=== PATIENT | female | born 1950 | race Caucasian/White ===

== ENCOUNTER → 2018-04-30 | Outpatient (CLI) | payer MEDICARE, BC ==
[~2018-04-30] MED LIST: ANTIVERT25 MG PO; ASPIRIN325 PO; CEFTIN 250 MG250 MG PO; CIPRO500 MG PO; COLACE100 MG PO; COUMADIN 2 MG TA2 M1 PO; COUMADIN 4 MG TA4 M1 PO; EFFEXOR; EFFEXOR 5050 MG/1 T1 PO; EFFEXOR XR150 MG PO; ELIQUIS5 MG PO; HYDROCODON-ACE1 EA11; HYDROCODONE-AP1 EAC6 PO; LEVOTHYROXIN0.175 MG PO; LEVOTHYROXINE 0.15MG PO; LEVOXYL125 MCG; NEURONTIN300 MG PO; NORCO 5-325 TA1 EACH PO; NYAMYC15 GM TOP; OXYCODONE HCL 55 MG PO; PREDNISONE; PREDNISONE 10 M10 MG PO; PROPAFENONE 22225 M1 PO; SYNTHROID150 MCG PO; TOPROL XL25 MG PO; TYLENOL325 MG PO; XANAX 0.5 MG0.5 MG PO; XARELTO10 MG PO
--- NOTE | 2018-04-30 16:20 | 2DMMODE ---
[place] [address] 2 D/M-MODE ECHOCARDIOGRAM Name: CHELO RAMOS Room: [facility]#: [id number] Admission: 04/30/18 Attend Phys: Fernandez Haro, Discharge: Date of : 52 Date of Service: 04/30/18 1620 Report #: [id number] THIS REPORT FOR: //name// APPROVED REPORT Study performed: 04/30/2018 15:00:45 EXAM: Comprehensive 2D, Doppler, and color-flow Echocardiogram Patient Location: Out-Patient Status: routine BSA: 2.27 HR: 62 bpm BP: 116/78 mmHg Other Information Study Quality: Good Indications Congestive Heart Failure Atrial Fibrillation 2D Dimensions IVSd: 15.51 (7-11mm) LVOT Diam: 20.73 (18-24mm) LVDd: 55.63 mm PWd: 11.33 (7-11mm) Ascending Ao: 33.84 (22-36mm) LVDs: 34.03 (25-40mm) Aortic Root: 31.76 mm Volumes Left Atrial Volume (Systole) LA ESV Index: 20.60 mL/m2 Aortic Valve AoV Peak Neptali.: 1.78 m/s AO Peak Gr.: 12.74 mmHg LVOT Max P.52 mmHg AO Mean Gr.: 7.43 mmHg LVOT Mean P.69 mmHg LVOT Max V: 0.94 m/s AO V2 VTI: 40.92 cm LVOT Mean V: 0.59 m/s MAYRA (VTI): 1.86 cm2 LVOT V1 VTI: 22.56 cm Mitral Valve E/A Ratio: 2.26 MV Decel. Time: 209.27 ms MV E Max Neptali.: 0.88 m/[place] [address] 2 D/M-MODE ECHOCARDIOGRAM Name: CHELO RAMOS Room: [facility]#: [id number] Admission: 04/30/18 Attend Phys: Fernandez Haro, Discharge: Date of : 52 Date of Service: 04/30/18 1620 Report #: [id number] MV PHT: 60.69 ms MVA (PHT): 3.63 cm2 TDI E/Lateral E': 8.00 E/Medial E': 9.78 Medial E' Neptali.: 0.09 m/s Lateral E' Neptali.: 0.11 m/s Pulmonary Valve PV Peak Neptali.: 1.03 m/s PV Peak Gr.: 4.22 mmHg Tricuspid Valve RAP Estimate: 5.00 mmHg TR Peak Gr.: 15.39 mmHg RVSP: 20.39 mmHg PA Pressure: 20.39 mmHg Left Ventricle The left ventricle is normal size. There is normal LV segmental wall motion. Mild concentric left ventricular hypertrophy. Left ventricular systolic function is normal. LVEF is 55-60%. The left ventricular diastolic function is normal. Right Ventricle The right ventricle is normal size. The right ventricular systolic function is normal. Atria Left atrium is mildly dilated. The right atrium size is normal. Aortic Valve Aortic valve is mildly calcified. Mild aortic regurgitation. Mild aortic stenosis. Mitral Valve The mitral valve is normal in structure. Mild mitral regurgitation. No evidence of mitral valve stenosis. Tricuspid Valve The tricuspid valve is normal in structure. Mild tricuspid regurgitation. The RVSP is 25 mmHg. Pulmonic Valve The pulmonary valve is normal in structure. Mild [place] [address] 2 D/M-MODE ECHOCARDIOGRAM Name: CHELO RAMOS Room: [facility]#: [id number] Admission: 04/30/18 Attend Phys: Fernandez Haro, Discharge: Date of : 52 Date of Service: 04/30/18 1620 Report #: [id number] Great Vessels The aortic root is normal in size. IVC is normal in size and collapses >50% with inspiration. Pericardium There is no pericardial effusion. <Conclusion> The left ventricle is normal size. Mild concentric left ventricular hypertrophy. Left ventricular systolic function is normal. LVEF is 55-60%. The left ventricular diastolic function is normal. Left atrium is mildly dilated. Aortic valve is mildly calcified. Mild aortic regurgitation. Mild aortic stenosis. Mild mitral regurgitation. Mild tricuspid regurgitation. The RVSP is 25 mmHg. Mild pulmonic regurgitation. IVC is normal in size and collapses >50% with inspiration. <ELECTRONICALLY SIGNED> By: Angel Booth MD, FACC 04/30/18 1620 19 162 Angel Booth MD, FACC /INF
== END ==
LOC: M.CRD 14:43
DX: I08.3 Combined rheumatic disorders of mitral, aortic and tricuspid valves (principal); I48.0 Paroxysmal atrial fibrillation; I50.9 Heart failure, unspecified

== ENCOUNTER 2019-06-01 12:12 | Emergency (ER) | payer MEDICARE, BC ==
[~2019-06-01] VITALS: Ht 165.1 cm; Wt 122.5 kg
[2019-06-01 12:56] LABS: ABSOLUTE LYMPHOCYTES 2.2 thou/uL (0.8-5.3); ABSOLUTE MONOCYTES 1.1 thou/uL (0.0-1.2); ABSOLUTE NEUTROPHILS 5.6 thou/uL (1.6-8.1); BASOPHILS 0.4 %; EOSINOPHILS 0.1 %; HEMATOCRIT 41.1 % (37.0-47.0); LYMPHOCYTES 25.2 %; MCH 32.1 pg (26.0-34.0); MCHC 33.9 g/dL (28.0-37.0); MCV 94.5 fL (80.0-100.0); MONOCYTES 11.8 %; MPV 7.6 fl. (7.2-11.1); NUCLEATED RBCS 0 /100WBC; PLATELET COUNT* 278 thou/uL (150-400); POLYS 62.5 %; RBC 4.35 mil/uL (4.20-5.00); RDW-CV 14.5 % (10.5-14.5); WBC 8.9 thou/uL (4.0-11.0)
[2019-06-01 13:04] LABS: INR 4.4; PROTIME 42.4 Seconds (9.20-11.50)
[2019-06-01 13:05] LABS: CALCIUM 8.3 mg/dL (8.5-10.1); CREATININE 1.1 mg/dL (0.6-1.3); POTASSIUM 3.6 mmol/L (3.5-5.1)
[2019-06-01 13:09] LABS: ALBUMIN 3.3 g/dL (3.4-5.0); TOTAL BILIRUBIN 0.2 mg/dL (<0.1-1.0); TOTAL PROTEIN 6.9 g/dL (6.4-8.2)
[2019-06-01 13:10] LABS: URINE BILIRUBIN 1+ (Negative); URINE BLOOD TRACE (Negative); URINE CLARITY CLEAR; URINE COLOR YELLOW; URINE GLUCOSE-RANDOM NEGATIVE (Negative); URINE KETONES TRACE (Negative); URINE LEUKOCYTES-REFLEX 1+ (Negative); URINE NITRITE-REFLEX NEGATIVE (Negative); URINE PROTEIN NEGATIVE (Negative); URINE SPECIFIC GRAVITY >= 1.030 (1.005-1.030); URINE UROBILINOGEN 0.2 E.U./dl (0.2-1.0)
[2019-06-01 13:11] LABS: ICTOTEST (BILI CONFIRMATORY) Negative (Negative); INFLUENZA A ANTIGEN Negative (Negative); INFLUENZA B ANTIGEN Negative (Negative)
[2019-06-01 13:13] LABS: BACTERIA-REFLEX 1-9 Few /HPF (None Seen); CALCIUM OXALATE 4-10 Moderate /LPF (None Seen); HYALINE CASTS 0-3 Few /LPF (None Seen); SQUAMOUS 4-10 Moderate /LPF (0-3); URINE RBC 0-2 Rare /HPF (0-2); URINE WBC-REFLEX 0-5 Rare /HPF (0-5)
[2019-06-01] MEDS ORDERED: CIPROFLOXACIN500 M1 PO (14:39)
[2019-06-01] MEDS ORDERED: FLOMAX0.4 MG PO (14:39)
[2019-06-01] MEDS ORDERED: NORCO 5-325 TA1 EAC1 PO (14:39)
[2019-06-01 14:50] VITALS: BP 137/92
== END 2019-06-01 14:54 | disposition home or self-care (01) ==
LOC: M.ERS 12:12
PROVIDERS: Family Medicine; Nurse Practitioner Family
DX: N20.0 Calculus of kidney (principal); M06.9 Rheumatoid arthritis, unspecified; I48.91 Unspecified atrial fibrillation; E03.9 Hypothyroidism, unspecified; Z90.49 Acquired absence of other specified parts of digestive tract; Z88.8 Allergy status to other drugs, medicaments and biological substances; Z91.041 Radiographic dye allergy status

== ENCOUNTER 2019-08-29 15:21 | Emergency (ER) | payer MEDICARE, BC ==
[~2019-08-29] VITALS: Ht 167.6 cm; Wt 125.2 kg
[~2019-08-29 15:21] MED LIST changes: +CIPROFLOXACIN500 M1 PO; +FLOMAX0.4 MG PO; +NORCO 5-325 TA1 EAC1 PO
[2019-08-29 15:52] LABS: ABSOLUTE BASOPHILS 0.1 thou/uL (0.0-0.2); ABSOLUTE LYMPHOCYTES 2.2 thou/uL (0.8-5.3); ABSOLUTE MONOCYTES 0.9 thou/uL (0.0-1.2); ABSOLUTE NEUTROPHILS 7.2 thou/uL (1.6-8.1); BASOPHILS 0.5 %; HEMATOCRIT 42.5 % (37.0-47.0); HEMOGLOBIN 14.3 gm/dL (12.0-15.0); LYMPHOCYTES 21.3 %; MCH 32.1 pg (26.0-34.0); MCHC 33.6 g/dL (28.0-37.0); MCV 95.3 fL (80.0-100.0); MONOCYTES 8.7 %; MPV 7.9 fl. (7.2-11.1); NUCLEATED RBCS 0 /100WBC; PLATELET COUNT* 299 thou/uL (150-400); POLYS 69.5 %; RBC 4.45 mil/uL (4.20-5.00); RDW-CV 14.8 % (10.5-14.5); WBC 10.4 thou/uL (4.0-11.0)
[2019-08-29 15:53] LABS: URINE BILIRUBIN NEGATIVE (Negative); URINE BLOOD TRACE (Negative); URINE CLARITY CLEAR; URINE COLOR YELLOW; URINE GLUCOSE-RANDOM NEGATIVE (Negative); URINE KETONES NEGATIVE (Negative); URINE LEUKOCYTES-REFLEX 1+ (Negative); URINE NITRITE-REFLEX NEGATIVE (Negative); URINE PROTEIN NEGATIVE (Negative); URINE SPECIFIC GRAVITY >= 1.030 (1.005-1.030); URINE UROBILINOGEN 0.2 E.U./dl (0.2-1.0)
[2019-08-29 16:01] LABS: CALCIUM 8.6 mg/dL (8.5-10.1); CREATININE 1.1 mg/dL (0.6-1.3); POTASSIUM 4.2 mmol/L (3.5-5.1)
[2019-08-29 16:02] LABS: SQUAMOUS >10 Many /LPF (0-3)
[2019-08-29 16:03] LABS: BACTERIA-REFLEX >30 Many /HPF (None Seen); CASTS None Seen /LPF (None Seen); CRYSTALS None Seen /LPF (None Seen); MUCUS 0-3 Light strn/LPF (None Seen); URINE RBC 0-2 Rare /HPF (0-2); URINE WBC-REFLEX 6-15 Few /HPF (0-5)
[2019-08-29 16:05] LABS: ALBUMIN 3.7 g/dL (3.4-5.0); TOTAL BILIRUBIN 0.3 mg/dL (<0.1-1.0); TOTAL PROTEIN 7.6 g/dL (6.4-8.2)
[2019-08-29] MEDS ORDERED: BACTRIM DS TAB1 EACH PO (17:18)
[2019-08-29 17:48] VITALS: BP 124/75
== END 2019-08-29 17:49 | disposition home or self-care (01) ==
LOC: M.ERS 15:21
PROVIDERS: Physician Assistant
DX: N39.0 Urinary tract infection, site not specified (principal); K42.9 Umbilical hernia without obstruction or gangrene; I48.91 Unspecified atrial fibrillation; E03.9 Hypothyroidism, unspecified; E66.9 Obesity, unspecified; M06.9 Rheumatoid arthritis, unspecified; Z68.41 Body mass index [BMI] 40.0-44.9, adult; Z90.49 Acquired absence of other specified parts of digestive tract; Z98.51 Tubal ligation status; Z87.442 Personal history of urinary calculi; Z91.041 Radiographic dye allergy status; Z91.048 Other nonmedicinal substance allergy status; Z88.8 Allergy status to other drugs, medicaments and biological substances

== ENCOUNTER → 2019-10-09 | Outpatient (CLI) | payer MEDICARE, BC ==
[~2019-10-09] MED LIST changes: +BACTRIM DS TAB1 EACH PO
== END ==
LOC: M.LAB 10-08 17:17
PROVIDERS: ATTEND Surgery
DX: Z01.818 Encounter for other preprocedural examination (principal); K42.9 Umbilical hernia without obstruction or gangrene; Z11.59 Encounter for screening for other viral diseases

== ENCOUNTER → 2019-10-13 | Outpatient (CLI) | payer MEDICARE, BC ==
[2019-10-13 06:55] LABS: INR 1.1
== END ==
LOC: M.LAB 04:51
PROVIDERS: Anesthesiology
DX: R79.1 Abnormal coagulation profile (principal)

== ENCOUNTER → 2019-11-10 | Outpatient (CLI) | payer MEDICARE, BC ==
--- NOTE | 2019-11-10 14:46 | 2DMMODE ---
[place] [address] 2 D/M-MODE ECHOCARDIOGRAM Name: FARHANAFABRIZIOCHELO SURYA Room: [facility].#: [id number] Admission: 11/10/19 Attend Phys: Mary Turner Discharge: Date of : 52 Date of Service: 11/10/19 1445 Report #: [id number] THIS REPORT FOR: cc: Kylah Chang MD, Ghazal A. MD Blick,Jacobo Melgoza MD [facility] ~ APPROVED REPORT Study performed: 11/10/2019 12:50:02 EXAM: Comprehensive 2D, Doppler, and color-flow Echocardiogram Patient Location: Out-Patient BSA: 2.23 HR: 65 bpm BP: 120/80 mmHg Other Information Study Quality: Good Indications Atrial Fibrillation 2D Dimensions IVSd: 11.38 (7-11mm) LVOT Diam: 20.17 (18-24mm) LVDd: 57.91 mm PWd: 8.23 (7-11mm) Ascending Ao: 32.53 (22-36mm) LVDs: 36.08 (25-40mm) Aortic Root: 32.89 mm Volumes Left Atrial Volume (Systole) LA ESV Index: 18.80 mL/m2 Aortic Valve AoV Peak Neptali.: 1.67 m/s AO Peak Gr.: 11.09 mmHg LVOT Max P.15 mmHg AO Mean Gr.: 6.70 mmHg LVOT Mean P.92 mmHg LVOT Max V: 1.02 m/s AO V2 VTI: 38.40 cm LVOT Mean V: 0.63 m/s MAYRA (VTI): 1.95 cm2 LVOT V1 VTI: 23.37 cm Mitral Valve E/A Ratio: 2.09 [place] [address] 2 D/M-MODE ECHOCARDIOGRAM Name: CHELO RAMOS Room: [facility]#: [id number] Admission: 11/10/19 Attend Phys: Mary Turner Discharge: Date of : 52 Date of Service: 11/10/19 1445 Report #: [id number] MV Decel. Time: 178.19 ms MV E Max Neptali.: 0.85 m/s MV PHT: 51.67 ms MVA (PHT): 4.26 cm2 TDI E/Lateral E': 8.50 E/Medial E': 8.50 Medial E' Neptali.: 0.10 m/s Lateral E' Neptali.: 0.10 m/s Pulmonary Valve PV Peak Neptali.: 0.98 m/s PV Peak Gr.: 3.87 mmHg Tricuspid Valve RAP Estimate: 5.00 mmHg TR Peak Gr.: 25.60 mmHg RVSP: 30.60 mmHg PA Pressure: 30.60 mmHg Left Ventricle The left ventricle is normal size. There is normal LV segmental wall motion. There is normal left ventricular wall thickness. Left ventricular systolic function is borderline. LVEF is 50-55%. The left ventricular diastolic function is normal. Right Ventricle The right ventricle is normal size. The right ventricular systolic function is normal. Atria The left atrium size is normal. The right atrium size is normal. Aortic Valve Mild aortic valve sclerosis. Mild aortic regurgitation. There is no aortic valvular stenosis. Mitral Valve Mild mitral annular calcification. Mild mitral regurgitation. No evidence of mitral valve stenosis. Tricuspid Valve The tricuspid valve is normal in structure. Mild tricuspid regurgitation. Pulmonic Valve The pulmonary valve is normal in structure. [place] [address] 2 D/M-MODE ECHOCARDIOGRAM Name: CHELO RAMOS SURYA Room: [facility]#: [id number] Admission: 11/10/19 Attend Phys: Mary Turner Discharge: Date of : 52 Date of Service: 11/10/19 1445 Report #: [id number] regurgitation. Great Vessels The aortic root is normal in size. IVC is normal in size and collapses >50% with inspiration. Pericardium There is no pericardial effusion. <Conclusion> LVEF is 50-55%. Mild aortic valve sclerosis. <ELECTRONICALLY SIGNED> By: Jacobo Srivastava MD, [facility] 11/10/19 1445 1445 1445 Jacobo Srivastava MD, [facility] /INF
== END ==
LOC: M.CRD 12:57
PROVIDERS: ATTEND Internal Medicine
DX: I08.8 Other rheumatic multiple valve diseases (principal); I48.0 Paroxysmal atrial fibrillation

== ENCOUNTER 2020-08-23 14:02 | Inpatient (IN) | payer MEDICARE, BC ==
[~2020-08-23] VITALS: Ht 165.1 cm; Wt 120.7 kg
[2020-08-23 14:10] VITALS: BP 151/76
[2020-08-23 15:14] LABS: URINE BLOOD 1+ (Negative); URINE CLARITY SL CLOUDY; URINE COLOR YELLOW; URINE GLUCOSE-RANDOM NEGATIVE (Negative); URINE KETONES TRACE (Negative); URINE LEUKOCYTES-REFLEX 1+ (Negative); URINE NITRITE-REFLEX NEGATIVE (Negative); URINE PROTEIN TRACE (Negative); URINE SPECIFIC GRAVITY >= 1.030 (1.005-1.030)
[2020-08-23 15:15] LABS: ABSOLUTE BASOPHILS 0.1 thou/uL (0.0-0.2); ABSOLUTE LYMPHOCYTES 1.9 thou/uL (0.8-5.3); ABSOLUTE MONOCYTES 1.1 thou/uL (0.0-1.2); ABSOLUTE NEUTROPHILS 6.4 thou/uL (1.6-8.1); BASOPHILS 0.6 %; EOSINOPHILS 0.1 %; HEMATOCRIT 43.2 % (37.0-47.0); HEMOGLOBIN 14.3 gm/dL (12.0-15.0); LYMPHOCYTES 20.2 %; MCH 31.6 pg (26.0-34.0); MCV 95.7 fL (80.0-100.0); MONOCYTES 11.4 %; MPV 8.4 fl. (7.2-11.1); NUCLEATED RBCS 0 /100WBC; PLATELET COUNT* 285 thou/uL (150-400); POLYS 67.7 %; RBC 4.52 mil/uL (4.20-5.00); RDW-CV 14.6 % (10.5-14.5); WBC 9.4 thou/uL (4.0-11.0)
[2020-08-23 15:17] LABS: ICTOTEST (BILI CONFIRMATORY) Negative (Negative); URINE BILIRUBIN 2+ (Negative)
[2020-08-23 15:21] LABS: CRYSTALS None Seen /LPF (None Seen); HYALINE CASTS 4-10 Moderate /LPF (None Seen); MUCUS 0-3 Light strn/LPF (None Seen); SQUAMOUS 0-3 Few /LPF (0-3); URINE RBC 0-2 Rare /HPF (0-2); URINE WBC-REFLEX 0-5 Rare /HPF (0-5)
[2020-08-23 15:22] LABS: CALCIUM 9.2 mg/dL (8.5-10.1); CREATININE 1.1 mg/dL (0.6-1.3); POTASSIUM 4.1 mmol/L (3.5-5.1)
[2020-08-23 15:27] LABS: ALBUMIN 3.1 g/dL (3.4-5.0); TOTAL BILIRUBIN 0.4 mg/dL (<0.1-1.0); TOTAL PROTEIN 7.3 g/dL (6.4-8.2)
[2020-08-23 15:33] LABS: INR 4.3; PROTIME 42.1 Seconds (9.20-11.50)
[2020-08-23 18:40] VITALS: BP 151/82
[2020-08-23 19:23] VITALS: BP 115/86
[2020-08-24 05:50] LABS: HEMATOCRIT 39.9 % (37.0-47.0); HEMOGLOBIN 12.9 gm/dL (12.0-15.0); MCH 31.1 pg (26.0-34.0); MCHC 32.4 g/dL (28.0-37.0); MCV 96.1 fL (80.0-100.0); MPV 8.7 fl. (7.2-11.1); RBC 4.15 mil/uL (4.20-5.00); RDW-CV 14.5 % (10.5-14.5); WBC 7.8 thou/uL (4.0-11.0)
[2020-08-24 05:54] LABS: CALCIUM 8.4 mg/dL (8.5-10.1); CREATININE 0.9 mg/dL (0.6-1.3); MAGNESIUM 1.8 mg/dL (1.8-2.4)
[2020-08-24 08:00] VITALS: BP 90/71; BP 98/71
[2020-08-24 09:04] LABS: INR 4.3; PROTIME 42.2 Seconds (9.20-11.50)
[2020-08-24 15:38] VITALS: BP 102/66
[2020-08-24 19:45] VITALS: BP 119/61
[2020-08-25 04:34] LABS: HEMATOCRIT 38.3 % (37.0-47.0); HEMOGLOBIN 12.5 gm/dL (12.0-15.0); MCH 31.2 pg (26.0-34.0); MCHC 32.7 g/dL (28.0-37.0); MCV 95.7 fL (80.0-100.0); MPV 7.9 fl. (7.2-11.1); RBC 4.01 mil/uL (4.20-5.00); RDW-CV 14.4 % (10.5-14.5); WBC 5.6 thou/uL (4.0-11.0)
[2020-08-25 04:48] LABS: INR 3.8; PROTIME 36.8 Seconds (9.20-11.50)
[2020-08-25 05:15] LABS: ALBUMIN 2.6 g/dL (3.4-5.0); CALCIUM 8.4 mg/dL (8.5-10.1); CREATININE 0.7 mg/dL (0.6-1.3); MAGNESIUM 1.8 mg/dL (1.8-2.4); POTASSIUM 3.8 mmol/L (3.5-5.1); TOTAL BILIRUBIN 0.3 mg/dL (<0.1-1.0); TOTAL PROTEIN 6.1 g/dL (6.4-8.2)
[2020-08-25] MEDS ORDERED: COLACE 100 MG100 MG PO (07:18)
[2020-08-25] MEDS ORDERED: ZOFRAN 4 MG ORAL4 MG PO (07:18)
[2020-08-25] MEDS ORDERED: NORCO5 PO (07:18)
[2020-08-25] MEDS ORDERED: AMOX TR-K CLV1 EAC3 PO (07:18)
[2020-08-25 08:05] VITALS: BP 126/95
[2020-08-25 12:19] VITALS: BP 126/95
[2020-08-25 13:35] VITALS: BP 126/95
== END 2020-08-25 13:36 | disposition home or self-care (01) | DRG 392 ==
LOC: M.ERS 14:02 → M.TBA-ER 16:36 → M.ORTHSURG 16:36
PROVIDERS: Nurse Practitioner Family; ADMIT Internal Medicine; ATTEND Internal Medicine
DX: K57.32 Diverticulitis of large intestine without perforation or abscess without bleeding (principal); N30.00 Acute cystitis without hematuria; D68.69 Other thrombophilia; Z68.41 Body mass index [BMI] 40.0-44.9, adult; M06.9 Rheumatoid arthritis, unspecified; I48.91 Unspecified atrial fibrillation; E03.9 Hypothyroidism, unspecified; E66.01 Morbid (severe) obesity due to excess calories; Z90.49 Acquired absence of other specified parts of digestive tract; Z88.8 Allergy status to other drugs, medicaments and biological substances; Z91.041 Radiographic dye allergy status; Z20.822 Contact with and (suspected) exposure to COVID-19

== ENCOUNTER → 2020-12-19 | Outpatient (CLI) | payer MEDICARE, BC ==
[~2020-12-19] MED LIST changes: +AMOX TR-K CLV1 EAC3 PO; +COLACE 100 MG100 MG PO; +NORCO5 PO; +ZOFRAN 4 MG ORAL4 MG PO
--- NOTE | 2020-12-19 16:03 | 2DMMODE ---
[place] [address] 2 D/M-MODE ECHOCARDIOGRAM Name: CHELO RAMOS SURYA Room: [facility]#: [id number] Admission: 12/19/20 Attend Phys: Mary Turner Discharge: Date of : 52 Date of Service: 12/19/20 1602 Report #: [id number] THIS REPORT FOR: cc: Kylah Chang MD, Ghazal A. MD Holkins,Santi Doss MD [facility] ~ APPROVED REPORT Study performed: 12/19/2020 14:04:18 EXAM: Comprehensive 2D, Doppler, and color-flow Echocardiogram Patient Location: Out-Patient BSA: 2.23 HR: 83 bpm BP: 120/70 mmHg Other Information Study Quality: Good Indications Aortic Valve Disease 2D Dimensions IVSd: 16.44 (7-11mm) LVOT Diam: 20.70 (18-24mm) LVDd: 48.08 mm PWd: 10.03 (7-11mm) Ascending Ao: 34.59 (22-36mm) LVDs: 42.06 (25-40mm) Aortic Root: 33.22 mm Volumes Left Atrial Volume (Systole) LA ESV Index: 25.60 mL/m2 Aortic Valve AoV Peak Neptali.: 1.39 m/s AO Peak Gr.: 7.77 mmHg LVOT Max P.53 mmHg AO Mean Gr.: 4.90 mmHg LVOT Mean P.26 mmHg LVOT Max V: 0.80 m/s AO V2 VTI: 22.51 cm LVOT Mean V: 0.52 m/s MAYRA (VTI): 1.82 cm2 LVOT V1 VTI: 12.16 cm Mitral Valve MV Decel. Time: 153.32 [place] [address] 2 D/M-MODE ECHOCARDIOGRAM Name: CHELO RAMOS Room: [facility]#: [id number] Admission: 12/19/20 Attend Phys: Mary Turner Discharge: Date of : 52 Date of Service: 12/19/20 1602 Report #: [id number] MV E Max Neptali.: 0.93 m/s MV PHT: 44.46 ms MVA (PHT): 4.95 cm2 TDI E/Lateral E': 7.15 E/Medial E': 13.29 Medial E' Neptali.: 0.07 m/s Lateral E' Neptali.: 0.13 m/s Pulmonary Valve PV Peak Neptali.: 0.81 m/s PV Peak Gr.: 2.62 mmHg Tricuspid Valve RAP Estimate: 5.00 mmHg TR Peak Gr.: 21.72 mmHg RVSP: 27.72 mmHg PA Pressure: 27.72 mmHg Left Ventricle The left ventricle is normal size. There is moderate diffuse hypokinesis of LV wall motion. There is normal left ventricular wall thickness. Left ventricular systolic function is moderately decreased. LVEF is 35-40%. This study is not technically sufficient to allow evaluation of the LV diastolic function due to atrial fibrillation. Right Ventricle The right ventricle is normal size. The right ventricular systolic function is normal. Atria Left atrium is moderately dilated. Right atrium is mildly dilated. Aortic Valve Mild aortic valve sclerosis. Mild aortic regurgitation. There is no aortic valvular stenosis. Mitral Valve The mitral valve is normal in structure. Mild mitral regurgitation. No evidence of mitral valve stenosis. Tricuspid Valve The tricuspid valve is normal in structure. Mild tricuspid regurgitation. [place] [address] 2 D/M-MODE ECHOCARDIOGRAM Name: CHELO RAMOS [facility] Room: [facility]#: [id number] Admission: 12/19/20 Attend Phys: Mary Turner Discharge: Date of : 52 Date of Service: 12/19/20 1602 Report #: [id number] The pulmonary valve is normal in structure. Mild pulmonic regurgitation. Great Vessels The aortic root is normal in size. IVC is normal in size and collapses >50% with inspiration. Pericardium There is no pericardial effusion. <Conclusion> The left ventricle is normal size. There is normal left ventricular wall thickness. Left ventricular systolic function is moderately decreased. LVEF is 35-40%. This study is not technically sufficient to allow evaluation of the LV diastolic function due to atrial fibrillation. The right ventricle is normal size. Left atrium is moderately dilated. Right atrium is mildly dilated. Mild aortic valve sclerosis. Mild aortic regurgitation. There is no aortic valvular stenosis. The mitral valve is normal in structure. Mild mitral regurgitation. The tricuspid valve is normal in structure. Mild tricuspid regurgitation. IVC is normal in size and collapses >50% with inspiration. There is no pericardial effusion. There is moderate diffuse hypokinesis of LV wall motion. <ELECTRONICALLY SIGNED> By: Santi Jacob MD, FACC 12/19/20 1602 01 160 Santi Jacob MD, FACC /INF
== END ==
LOC: M.CRD 14:00
PROVIDERS: ATTEND Internal Medicine
DX: I08.8 Other rheumatic multiple valve diseases (principal); R55 Syncope and collapse

== ENCOUNTER 2021-01-20 09:02 | Observation (INO) | payer MEDICARE, BC ==
[2021-01-20] VITALS (10 sets, daily range): BP systolic 118–149; BP diastolic 63–94
[~2021-01-20] VITALS: Ht 165.1 cm; Wt 117.9 kg
--- NOTE | ~2021-01-20 | H ---
[address] [address] HISTORY AND PHYSICAL Name: CHELO RAMOS Room: [address] Sahil Salas#: [id number] Admission: 01/20/21 Attend Phys: Santi Jacob MD, Discharge: 01/21/21 Date of : 52 Report #: [id number] THIS REPORT FOR: cc: Kylah Chang MD, Ghazal A. MD [facility],Medical Records Staff ~ Please refer to the History and Physical performed in the physician's office. By: [facility]1Medical Records Staff [facility] /CUATE
[~2021-01-20 09:02] MED LIST changes: +LIPITOR40 MG PO
--- NOTE | 2021-01-20 09:48 | EKG ---
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
[2021-01-20 09:58] LABS: HEMATOCRIT 43.8 % (37.0-47.0); HEMOGLOBIN 14.3 gm/dL (12.0-15.0); MCH 31.3 pg (26.0-34.0); MCHC 32.8 g/dL (28.0-37.0); MCV 95.5 fL (80.0-100.0); MPV 7.9 fl. (7.2-11.1); RBC 4.58 mil/uL (4.20-5.00); RDW-CV 15.1 % (10.5-14.5); WBC 7.3 thou/uL (4.0-11.0)
[2021-01-20 10:03] LABS: ANION GAP 5 mmol/L (7-16); BUN 19 mg/dL (7-18); CALCIUM 8.7 mg/dL (8.5-10.1); CHLORIDE 103 mmol/L (98-107); CO2 34 mmol/L (21-32); CREATININE 1.3 mg/dL (0.6-1.3); GLUCOSE 79 mg/dL (70-99); POTASSIUM 4.3 mmol/L (3.5-5.1); SODIUM 142 mmol/L (136-145)
[2021-01-20 10:06] LABS: APTT 28.2 Seconds (25.0-31.3); INR 1.5; PROTIME 15.1 Seconds (9.20-11.50)
[2021-01-20 10:07] LABS: ALBUMIN 3.9 g/dL (3.4-5.0); ALKALINE PHOSPHATASE 132 U/L (46-116); CHOLESTEROL 127 mg/dL (<200); HDL CHOLESTEROL 57 mg/dL (>40); LDL CHOLESTEROL 59 mg/dL (<100); SGOT 16 U/L (15-37); SGPT 20 U/L (30-65); TC:HDL 2.2 Ratio (Not establshd); TOTAL BILIRUBIN 0.9 mg/dL (<0.1-1.0); TOTAL PROTEIN 7.3 g/dL (6.4-8.2); TRIGLYCERIDE 58 mg/dL (<150); VLDL 12 mg/dL (<40)
[2021-01-20 10:16] LABS: SERUM ASSESSMENT Clear
[2021-01-20] MEDS ORDERED: LEVOTHYROXINE200 MC2 PO (11:41)
[2021-01-20] MEDS ORDERED: WARFARIN SODIUM5 MG PO (11:44)
--- NOTE | 2021-01-20 14:39 | EKG ---
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 Clinician: : 1950 Requested By: Santi Jacob Order Number: [id number] Rene MD: Santi Jacob Measurements Intervals [place] Rate: 87 P: [place]: QRS: -37 QRSD: 137 T: 165 QT: 402 QTc: 484 Interpretive Statements Atrial fibrillation Left bundle branch block Compared to ECG 01/20/2021 09:36:57 No significant changes Electronically Signed On 01-20-2021 14:39:48 CDT by Santi Jacob [email or web address] <ELECTRONICALLY SIGNED> By: Santi Jacob MD, [facility] 01/20/21 1439 1345 1345 Santi Jacob MD, [facility] /EPI
--- NOTE | 2021-01-20 18:58 | NUR ---
Pt remains on bedrest until 192. Armendariz in place until off bedrest. Pt medicated for c/o back pain, reports complete relief afterwards. On 2L O2, will reassess need after off bedrest. Otherwise VSS. Rt groin stable. Will continue to monitor.
[2021-01-21 01:51] VITALS: BP 103/61
[2021-01-21 04:51] LABS: HEMATOCRIT 40.4 % (37.0-47.0); HEMOGLOBIN 13.5 gm/dL (12.0-15.0); MCH 31.7 pg (26.0-34.0); MCHC 33.4 g/dL (28.0-37.0); MCV 94.8 fL (80.0-100.0); MPV 8.3 fl. (7.2-11.1); RBC 4.26 mil/uL (4.20-5.00); RDW-CV 14.9 % (10.5-14.5); WBC 6.9 thou/uL (4.0-11.0)
[2021-01-21 05:00] LABS: ALBUMIN 3.3 g/dL (3.4-5.0); CALCIUM 8.6 mg/dL (8.5-10.1); CK-MB MASS 2.2 ng/mL (<0.5-3.6); CREATININE 0.9 mg/dL (0.6-1.3); POTASSIUM 4.1 mmol/L (3.5-5.1); TOTAL BILIRUBIN 0.9 mg/dL (<0.1-1.0); TOTAL PROTEIN 6.4 g/dL (6.4-8.2)
[2021-01-21 05:23] VITALS: BP 107/66
--- NOTE | 2021-01-21 06:51 | NUR ---
ASSUMED PT CARE AT APPROX. 1930. PT IS A/OX4. 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 HR CONTROLLED 70-80 BPM. PT HAD A STENT PLACED TO RCA. RIGHT GROIN SITE DRESSING IS C/D/I. NO S/SX OF BRUISING OR HEMATOMA PRESENT. PT DENIES PAIN. PT DENIES CHEST PAIN. VSS. MEDICATIONS ADMINISTERED PRESCRIBED. HOURLY ROUNDS COMPLETE CHARTED. ASSESSMENTS COMPLETED. FALL PRECAUTIONS IN PLACE FOR SAFETY. NO ACUTE CHANGES THIS SHIFT. WILL CONT. TO MONITOR.
[2021-01-21 08:00] VITALS: BP 100/69
[2021-01-21] MEDS ORDERED: NITROGLYCERIN0.4 MG SUBLING (08:54)
[2021-01-21] MEDS ORDERED: CLOPIDOGREL75 MG PO (08:54)
[2021-01-21] MEDS ORDERED: BAYER CHEWABLE81 MG PO (08:54)
--- NOTE | 2021-01-21 11:01 | CARD ---
[address] [address] CARDIAC CATH REPORT Name: CHELO RAMOS SURYA Room: [address] Sahil MRainerRRainer#: [id number] Admission: 01/20/21 Attend Phys: Santi Jacob MD, Discharge: Date of : 52 Report #: [id number] THIS REPORT FOR: cc: Kylah Chang MD, Ghazal A. MD Holkins,Santi Doss MD [facility] ~ APPROVED REPORT Study performed: 01/20/2021 12:00:37 Patient Details Patient Status: Out-Patient Room #: The patient is a 70 year-old female Event Personnel Santi Jacob Corporate Recruiter, Marko Anton RN Precision Instrument Maker, Nicole Borrero RN Monitor, Laury Lopez RTR Scrub Procedures Performed Art Access - R femoral artery* Left Heart Cath w/or w/o Coronaries [id number] [facility] Place w/wo Plasty Single RCA [id number] Hemostasis w/ Mynx Indication Unstable angina , Positive stress test Risk Factors Obesity, Hypercholesterolemia Procedure Narrative The patient was brought electively to the Cardiac Catheterization Laboratory and was prepped and draped in a sterile manner. The right femoral was infiltrated with 2% Lidocaine subcutaneous anesthesia. IV conscious sedation was used throughout procedure with appropriate monitoring and was performed in the presence of a registered nurse who was an independent trained observer other than the physician performing the procedure. A Geneva 6 FR sheath was inserted into the right femoral artery. Coronary angiography was performed using coronary diagnostic catheters. The right coronary system was accessed and visualized with a Diagnostic JR4 catheter. The left coronary system was accessed and visualized with a Diagnostic JL4 catheter. The left ventricle was accessed and visualized with a Diagnostic PIGTAIL catheter. Left ventricular/[place] [address] CARDIAC CATH REPORT Name: CHELO RAMOS SURYA Room: [address] M.R.#: [id number] Admission: 01/20/21 Attend Phys: Santi Jacob MD, Discharge: Date of : 52 Report #: [id number] catheter pullback. Left ventriculogram was performed in INFANTE projection. Pre-demployment femoral angiogram was performed . Closure device was deployed with a 6 Fr Mynx. The patient tolerated the procedure well and there were no complications associated with the procedure. There was no hematoma. Intraoperative Conscious Sedation Sedation start time: 12:19 Case end Time: Fentanyl 25 mcg Versed 1 mg Fluoro Time: 12.5 minutes Dose: DAP [id number] cGycm2 2077 mGy Contrast Type and Amount: Visipaque 200 ml Coronary Angiography The patient's coronary anatomy is right dominant. Diagnostic Cath Left Main 0% narrowing LAD 30% proximal LAD narrowing Circumflex 0% narrowing Right Coronary Large dominant vessel 75% proximal stenosis 40% narrowing at the acute margin 50% postero- lateral branch narrowing Ramus 30% proximal narrowing Left Ventriculography The left ventricle is mildly dilated in size with Markedly decreased contractility. The left ventricular ejection fraction is estimated to be 25-30%. There is no mitral insufficiency. There is diffuse severe hypokinesis of left ventricular wall motion. Hemodynamics The aortic pressure is 133/86 mmHg with a mean of 106 mmHg. The left ventricular pressure is 128/12 mmHg with a mean of mmHg. The left ventricular end diastolic pressure is 22 mmHg. There was no gradient across the aortic valve upon pullback. The patient was in atrial fibrillation throughout the study PCI Technique Lesion Anticoagulation was achieved with Angiomax. Percutaneous coronary intervention was performed on the proximal right coronary artery. The lesion stenosis prior to intervention was 75% with SASCHA 3 flow. A Launcher JR 4 6FR Guide Catheter was used to engage the ostium. A IG: BMW 190cm Interventional Guide[place] [address] CARDIAC CATH REPORT Name: CHELO RAMOS SURYA Room: [address]#: [id number] Admission: 01/20/21 Attend Phys: Santi Jacob MD, Discharge: Date of : 52 Report #: [id number]. BALLOON DILATION A Balloon catheter Trek RX 3.25 X 8 was inserted and inflated up to 17.00atm for 20seconds. STENT DEPLOYMENT A drug-eluting stent Myron RX Stent 4.0X12mm was inserted and inflated up to 14.00atm for 14seconds. Additional Inflation: 18.00atm for 12seconds. POST STENT DEPLOYMENT BALLOON DILATION A Balloon catheter NC Trek RX 4.5 X 8 was inserted and inflated up to 16.00atm for 11seconds. Additional Inflation: 20.00atm for 15seconds. Final angiography reveals 10 % stenosis with SASCHA 3 flow. COMMENTS Postdilatation with a 5.0 x 8 NC trek inflated to 12 to 14 shiraz Conclusion 1. Significant coronary artery disease characterized by the following: A 30% proximal LAD narrowing B 30% narrowing the proximal portion of the prominent ramus intermedius C dominant right coronary artery with 75% proximal stenosis 40% narrowing at the acute margin and 50% postero- lateral branch narrowing D normal left main and nondominant circumflex 2. Severe impairment in global LV function, estimated ejection fraction being 25 - 30% 3. Atrial fibrillation throughout the study 4. Successful PCI with deployment of drug-eluting stent at the site of 75% proximal right coronary stenosis with 10% [place] [address] CARDIAC CATH REPORT Name: CHELO RAMOS Room: [address] Sahil M.RRainer#: [id number] Admission: 01/20/21 Attend Phys: Santi Jacob MD, Discharge: Date of : 52 Report #: [id number] and SASCHA-3 flow to the distal vessel Recommendations Cardiac Risk Reduction Program Aggressive Medical Therapy Medications Administered Aspirin (any) Clopidogrel Diagnostic Cath Approved by: Santi Jacob MD Date/Time: 01/21/2021 10:55:44 <ELECTRONICALLY SIGNED> By: Santi Jacob MD, [facility] 01/21/211100 00 00Santi Jacob MD, [facility] /INF
--- NOTE | 2021-01-21 11:05 | D ---
[address] [address] DISCHARGE SUMMARY Name: CHELO RAMOS Room: [address] Sahil M.R.#: [id number] Admission: 01/20/21 Attend Phys: Santi Jacob MD, Discharge: Date of : 52 Report #: [id number] THIS REPORT FOR: cc: Kylah Chang MD, Ghazal A. MD Holkins,Santi Doss MD [facility] ~ DATE OF DISCHARGE: 01/21/2021 DISCHARGE DIAGNOSES: 1. Abnormal nuclear stress test. 2. Angina with exertion. 3. Coronary artery disease. 4. Status post PCI with deployment of drug-eluting stent in the proximal right coronary artery. 5. Persistent atrial fibrillation. 6. Ischemic cardiomyopathy. 7. Hyperlipidemia. 8. Exogenous obesity. PROCEDURES: On 01/20/2021 -- left heart catheterization, left ventriculography, selective coronary arteriography, and percutaneous coronary intervention with deployment of drug-eluting stent at site of 75% proximal right coronary stenosis. HOSPITAL COURSE: The patient is a very pleasant 70-year-old female with a history of cardiomyopathy and paroxysmal atrial fibrillation. She has had marginally compensated congestive heart failure in that context. Recent nuclear stress test was abnormal with a moderate induced ischemic burden. In this context, I performed cardiac catheterization on 01/20/2021, which revealed high normal left ventricular cavitary size with significant impairment of global LV function, estimated ejection fraction 25%. Left ventricular end diastolic pressure was 18-20 mmHg. She had significant coronary disease with a 75% proximal right coronary stenosis followed by aneurysmal dilatation with 50% narrowing at the acute margin. There was modest LAD and circumflex disease and the left main was normal. Given this data, proceed with PCI, deploying one 4.0 x 12 mm Myron drug-eluting stent in the proximal right coronary artery, post-dilating it to 5.0 mm with a 10% residual narrowing and SASCHA 3 flow to the distal vessel. The patient did well post-procedurally and there was good hemostasis at the right femoral site of catheterization. She ambulated in [place] [address] DISCHARGE SUMMARY Name: CHELO RAMOS SURYA Room: [address] Aristides.#: [id number] Admission: 01/20/21 Attend Phys: Santi Jacob MD, Discharge: Date of : 52 Report #: [id number] Laboratory on 01/21 revealed sodium 141, potassium 4.1, BUN 15, creatinine 0.9, glucose 116. White blood cell count 6900, hemoglobin 13.5, hematocrit 40.4, platelets 221,000. Total cholesterol 121, triglycerides 58, HDL 57, LDL 59 mg percent. The patient was discharged to home on the following medications: Clopidogrel or Plavix 75 mg daily with a 600 mg loading dose given janice-procedurally, aspirin 81 mg daily, p.r.n. sublingual nitroglycerin, Effexor or venlafaxine 50 mg 1 tablet at bedtime as needed and 150 mg capsule take in the extended release daily, alprazolam or Xanax 0.5 mg b.i.d., atorvastatin 40 mg p.o. q.o.d., [place] 5/325 one tablet every 6 hours p.r.n. pain, L-thyroxine 200 mcg daily and reinstitution of warfarin 6 mg daily. Previously utilized propafenone was discontinued in the context of persistent atrial fibrillation with no evidence of pharmacologic effect of the type 1C antiarrhythmic. I will plan to see the patient in the office on 01/26 at 0800 in followup of her coronary disease, dilated cardiomyopathy, and atrial fibrillation. Our plan is to do therapy with Entresto and also plan subsequent in-hospital loading with sotalol and cardioversion in hopes of achieving better hemodynamic performance with a combination of modified medical therapy and reinstitution of sinus mechanism. Therefore, the patient is discharged home in stable condition on the aforementioned medications with followup as described above. <ELECTRONICALLY SIGNED> By: Santi Jacob MD, [facility] 01/21/21 1105 0926 0942Santi Jacob MD, FAC /nt
[2021-01-21 12:25] VITALS: BP 100/69
[2021-01-21 12:55] VITALS: BP 127/78
[2021-01-21 13:10] VITALS: BP 127/78
--- NOTE | 2021-01-21 13:38 | NUR ---
PATIENT LEFT IN STABLE CONDTION. ALL DISCHARGE INSTRUCTIONS VERBALIZED UNDERSTANDING. BELONGINGS WITH PATIENT AT DISCHARGE.
== END 2021-01-21 13:35 | disposition home or self-care (01) ==
LOC: M.CL 09:02 → M.TBA-CV 13:31 → M.2W 15:20
PROVIDERS: ADMIT Internal Medicine; ATTEND Internal Medicine
DX: I25.118 Atherosclerotic heart disease of native coronary artery with other forms of angina pectoris (principal); Z20.822 Contact with and (suspected) exposure to COVID-19; R94.39 Abnormal result of other cardiovascular function study; I48.19 Other persistent atrial fibrillation; I25.5 Ischemic cardiomyopathy; E78.5 Hyperlipidemia, unspecified; E66.09 Other obesity due to excess calories; Z68.41 Body mass index [BMI] 40.0-44.9, adult

== ENCOUNTER → 2021-02-06 | Outpatient (CLI) | payer MEDICARE, BC ==
[~2021-02-06] MED LIST changes: +BAYER CHEWABLE81 MG PO; +CLOPIDOGREL75 MG PO; +LEVOTHYROXINE200 MC2 PO; +NITROGLYCERIN0.4 MG SUBLING; +WARFARIN SODIUM5 MG PO
[2021-02-06 11:06] LABS: ABSOLUTE LYMPHOCYTES 1.8 thou/uL (0.8-5.3); ABSOLUTE MONOCYTES 0.7 thou/uL (0.0-1.2); ABSOLUTE NEUTROPHILS 4.8 thou/uL (1.6-8.1); BASOPHILS 0.6 %; EOSINOPHILS 0.1 %; HEMATOCRIT 47.7 % (37.0-47.0); HEMOGLOBIN 15.8 gm/dL (12.0-15.0); LYMPHOCYTES 24.3 %; MCH 31.7 pg (26.0-34.0); MCHC 33.1 g/dL (28.0-37.0); MCV 96.1 fL (80.0-100.0); MONOCYTES 9.9 %; MPV 7.8 fl. (7.2-11.1); NUCLEATED RBCS 0 /100WBC; PLATELET COUNT* 301 thou/uL (150-400); POLYS 65.1 %; RBC 4.96 mil/uL (4.20-5.00); RDW-CV 14.9 % (10.5-14.5); WBC 7.4 thou/uL (4.0-11.0)
[2021-02-06 11:18] LABS: CALCIUM 9.1 mg/dL (8.5-10.1); CREATININE 1.2 mg/dL (0.6-1.3)
== END ==
LOC: M.LAB 09:06
PROVIDERS: ATTEND Internal Medicine
DX: I25.5 Ischemic cardiomyopathy (principal); I25.10 Atherosclerotic heart disease of native coronary artery without angina pectoris

== ENCOUNTER → 2021-07-18 | Outpatient (CLI) | payer MEDICARE, BC ==
[~2021-07-18] MED LIST changes: +ENTRESTO 24 MG1 EACH PO; +HYDROCODON-ACE1 EAC7 PO; +PLAVIX 75 MG TA75 MG PO; +PROAIR DIGIHAL90 MCG INH; +SIMVASTATIN80 MG PO; +VENLAFAXINE HCL50 MG PO; +WARFARIN SODIUM2 MG PO
== END ==
LOC: M.PC 07-13 09:00
PROVIDERS: ATTEND Anesthesiology Pain Medicine
DX: M25.552 Pain in left hip (principal); M54.50 Low back pain, unspecified; M25.561 Pain in right knee; M25.562 Pain in left knee; M79.673 Pain in unspecified foot; G89.29 Other chronic pain; N18.30 Chronic kidney disease, stage 3 unspecified; N20.0 Calculus of kidney; I48.91 Unspecified atrial fibrillation; G47.30 Sleep apnea, unspecified; E03.9 Hypothyroidism, unspecified; J45.909 Unspecified asthma, uncomplicated; Z79.01 Long term (current) use of anticoagulants; Z88.8 Allergy status to other drugs, medicaments and biological substances; Z96.652 Presence of left artificial knee joint; Z79.899 Other long term (current) drug therapy